=== PATIENT | female | born 2000 | race Caucasian/White ===

== ENCOUNTER → 2021-12-17 | Outpatient (CLI) | payer BC ==
--- NOTE | 2021-12-17 15:10 | Diagnostic Imaging Report ---
PROCEDURE: CT sinuses without contrast TECHNIQUE: Multiple contiguous axial images were obtained through the sinuses without the use of intravenous contrast. Coronal and sagittal reformations were then performed. Auto Exposure Controls were utilized during the CT exam to meet ALARA standards for radiation dose reduction. INDICATION: Nasal congestion. FINDINGS: There is some moderate bilateral maxillary sinus disease. Frontal sinuses are clear. Ethmoid air cells are largely clear as is the sphenoid sinus. Mastoid air cells are clear. There have been bilateral antrectomies. There is deviation of the nasal septum. The globes and intraorbital structures are unremarkable. Nasopharyngeal soft tissues are symmetrical without mass effect. Parotid glands are unremarkable. IMPRESSION: Previous bilateral maxillary antrectomy with some deviation of the nasal septum. Mild to moderate mucosal thickening in the maxillary sinuses. Dictated by: Dictated on workstation # [id number]
== END ==
LOC: RAD 14:15
PROVIDERS: ATTEND Otolaryngology Otolaryngology/Facial Plastic Surgery
DX: J34.2 Deviated nasal septum (principal); J32.0 Chronic maxillary sinusitis; J33.9 Nasal polyp, unspecified; Z98.890 Other specified postprocedural states
CPT/HCPCS: 70486

== ENCOUNTER 2022-03-18 05:42 | Outpatient (CLI) | payer BC ==
[~2022-03-18] VITALS: Ht 170.2 cm; Wt 84.1 kg
[2022-03-19] MEDS ORDERED: RT-ALBUINH INH (10:05)
== END 2022-03-19 10:23 | disposition home or self-care (01) ==
LOC: PREOP 05:42
PROVIDERS: ATTEND Otolaryngology Otolaryngology/Facial Plastic Surgery
DX: Z01.818 Encounter for other preprocedural examination (principal)

== ENCOUNTER 2022-03-21 06:02 | Day surgery (SDC) | payer BC ==
[~2022-03-21] VITALS: Ht 170.2 cm; Wt 84.1 kg
[2022-03-21] VITALS (11 sets, daily range): BP systolic 105–138; BP diastolic 70–95
[~2022-03-21 06:02] MED LIST: RT-ALBUINH INH
[2022-03-21] MEDS ORDERED: MIDAZOLAM 2 MG/2 ML (VERSED) VIAL ONE ×2 (06:38→07:04)
[2022-03-21] MEDS ORDERED: RT-ALBUTEROL SULF 2.5 MG/3 ML PRE-MIX VIAL INH ONE (06:45)
[2022-03-21] MEDS ORDERED: MIDAZOLAM 2 MG/2 ML (VERSED) VIAL IV ONE (06:45)
[2022-03-21] MEDS ORDERED: LACTATED RINGERS 1,000 ML IV PRN (06:45)
[2022-03-21] MEDS ORDERED: PHENYLEPHRINE 0.5% NASAL SPR (NEO-SYNEPHRINE) REG ONE (06:50)
[2022-03-21 06:57] LABS: BASOPHILS # (AUTO) 0.1 10^3/uL (0.0-0.1); BASOPHILS % (AUTO) 1 % (0-10); EOSINOPHILS # (AUTO) 0.7 10^3/uL (0.0-0.3); EOSINOPHILS % (AUTO) 8 % (0-10); HEMATOCRIT 41 % (35-52); HEMOGLOBIN 13.8 g/dL (11.5-16.0); LYMPHOCYTES # (AUTO) 2.7 10^3/uL (1.0-4.0); LYMPHOCYTES % (AUTO) 33 % (12-44); MEAN CORPUSCULAR HEMOGLOBIN 29 pg (25-34); MEAN CORPUSCULAR HGB CONC 34 g/dL (32-36); MEAN CORPUSCULAR VOLUME 87 fL (80-99); MEAN PLATELET VOLUME 9.8 fL (9.0-12.2); MONOCYTES # (AUTO) 0.8 10^3/uL (0.0-1.0); MONOCYTES % (AUTO) 9 % (0-12); NEUTROPHILS % (AUTO) 48 % (42-75); PLATELET COUNT 432 10^3/uL (130-400); WHITE BLOOD COUNT 8.3 10^3/uL (4.3-11.0)
[2022-03-21] MEDS ORDERED: LIDOCAINE/EPI 2% 1:100,00 (XYLOCAINE) 20 ML VIAL ONE (06:59)
[2022-03-21] MEDS ORDERED: LIDOCAINE PF 2% 5 ML (XYLOCAINE) VIAL ONE (07:02)
[2022-03-21] MEDS ORDERED: ONDANSETRON 4 MG/2 ML (SDV) Z0FRAN ONE (07:02)
[2022-03-21] MEDS ORDERED: proPOfol 200 MG/20 ML (DIPRIVAN) VIAL IV ONE ×2 (07:02→07:40)
[2022-03-21] MEDS ORDERED: fentaNYL INJ 100 MCG/2 ML AMP ONE (07:02)
[2022-03-21] MEDS ORDERED: SEVOFLURANE (ULTANE) 15 ML INHAL SOLN ONE ×2 (07:02→07:40)
--- NOTE | 2022-03-21 07:05 | Progress Note-Pre Operative ---
Pre-Operative Progress Note H&P Reviewed The H&P was reviewed, patient examined and no changes noted. Date Seen by Provider: March 21, 2022 Time Seen by Provider: 07:00 Date H&P Reviewed: March 21, 2022 Time H&P Reviewed: 07:00 Pre-Operative Diagnosis: T/A Hyper with Uao, bILAT hYPRE OF iNF tURBS SHAUN LATIF MD March 21, 2022 07:05
--- NOTE | 2022-03-21 07:08 | Progress Note-Post Operative ---
Post-Operative Progess Note Surgeon (s)/Cardiac Rehabilitation Specialist (s) Surgeon SHAUN LATIF MD Cardiac Rehabilitation Specialist n/a Pre-Operative Diagnosis T/A Hyper with Uao, bILAT hYPRE OF iNF tURBS Post-Operative Diagnosis same Post-Op Procedure Note Date of Procedure: March 21, 2022 Name of Procedure Performed: T/A, Bilat Red of Inf Turbs Description & Findings Description and Findings: n/a Anesthesia Type get Estimated Blood Loss minimal Packing none. Specimen(s) collected/removed tonsils SHAUN LATIF MD March 21, 2022 07:08
[2022-03-21] MEDS ORDERED: HYDROcodone/APAP 7.5MG-325 MG/15 ML (LORTAB) UDC PO PRN (07:15)
[2022-03-21] MEDS ORDERED: NS IV 1000 ML 1,000 ML IV SCH (07:15)
[2022-03-21] MEDS ORDERED: APAP 325 MG/10.15 ML LIQ (TYLENOL) UDC PO PRN (07:15)
--- NOTE | 2022-03-21 07:58 | Anesthesia-General Post-Op ---
General Patient Condition Mental Status/LOC: Same as Preop Cardiovascular: Satisfactory Nausea/Vomiting: Absent Respiratory: Satisfactory Pain: Controlled Complications: Absent Post Op Complications Complications None Follow Up Care/Instructions Patient Instructions None needed. Anesthesia/Patient Condition Patient Condition Patient is doing well, no complaints, stable vital signs, no apparent adverse anesthesia problems. No complications reported per nursing. ARMINDA MORRISON CRNA March 21, 2022 07:58
[2022-03-21] MEDS ORDERED: MEPERIDINE (DEMEROL) INJ 50 MG/ML IVP ONE (08:00)
[2022-03-21] MEDS ORDERED: fentaNYL INJ 100 MCG/2 ML AMP IVP ONE (08:00)
[2022-03-21] MEDS ORDERED: morphine INJ 10 MG/ML 1ML (SYR OR VIAL) IVP ONE (08:00)
[2022-03-21] MEDS ORDERED: ONDANSETRON 4 MG/2 ML (SDV) Z0FRAN IVP PRN (08:00)
[2022-03-21] MEDS ORDERED: AMOX250S5 PO (08:27)
[2022-03-21] MEDS ORDERED: HYDR15SO8 PO (08:27)
[2022-03-21] MEDS ORDERED: TETRACAINESUCKERS MT (08:27)
[2022-03-21] MEDS ORDERED: DEXAINTSOL PO (08:27)
== END 2022-03-21 10:55 | disposition home or self-care (01) ==
LOC: SDC 06:02
PROVIDERS: ATTEND Otolaryngology Otolaryngology/Facial Plastic Surgery
DX: J35.3 Hypertrophy of tonsils with hypertrophy of adenoids (principal); J03.91 Acute recurrent tonsillitis, unspecified; J35.01 Chronic tonsillitis; J98.8 Other specified respiratory disorders; J34.3 Hypertrophy of nasal turbinates; R09.81 Nasal congestion
CPT/HCPCS: 36415; 84703; 85025; 87081; 94640

== ENCOUNTER 2022-03-22 | Emergency (ER) | payer BC ==
[~2022-03-22] VITALS: Ht 170 cm; Wt 84.1 kg
[~2022-03-22] MED LIST changes: +AMOX250S5 PO; +DEXAINTSOL PO; +HYDR15SO8 PO; +TETRACAINESUCKERS MT
[2022-03-22 00:08] VITALS: BP 137/92
--- NOTE | 2022-03-22 00:26 | ED General ---
General Stated Complaint: POST OP TONSILECTOMY SWELLING Source of Information: Patient, Family (mom) Exam Limitations: No Limitations History of Present Illness Date Seen by Provider: March 22, 2022 Time Seen by Provider: 00:08 Initial Comments Patient presents to the ER by private conveyance with her mother and chief complaint that she is having some swelling in her lips and tongue since the time she took the steroid @ 1030 AM. This morning at 0730 Dr. Rutherford, ENT did turbinate and tonsil surgery. He also put her on amoxicillin. She has no known drug allergies. She says she feels like her tongue is swollen as well as her lips and it is hard to swallow anything more than liquids. She says she cannot breathe out of her nose. She spoke to the surgeon over the phone but he could not tell based on her story over the phone if she was having allergic reaction or the expected amount of swelling after a significant facial surgery. The patient's never had anaphylaxis in the past. No significant family history. She has a history of asthma but no shortness of air or wheezing or cough. Allergies and Home Medications Allergies Coded Allergies: No Known Drug Allergies (Unverified , 03/21/22) Patient Home Medication List Home Medication List Reviewed: Yes Albuterol Sulfate (Ventolin Hfa) 1 Puff Puff, 2 PUFF INH UD, (Reported) Entered as Reported by: ADDIS EDEN on 03/19/22 100 Amoxicillin (Amoxicillin) 250 Mg/5 Ml Susp, 1 TSP PO BID Prescribed by: OSBALDO VELEZ on 03/21/22826 Dexamethasone (Decadron Intensol Oral Solution (Repackaging)) 1 Mg/Ml Diamond, 2 TSP PO DAILY PRN for PAIN Prescribed by: OSBALDO VELEZ on 03/21/22826 Hydrocodone/Acetaminophen (Hydrocodon-Acetamin 7.5-325/15 ML) 7.5 Mg-325 Mg/15 Ml (15 Ml) Solution, 2-3 TSP PO Q4H Prescribed by: OSBALDO VELEZ on 03/21/22826 Tetracaine (Tetracaine Suckers) Sucker Ea, 1 EA MT UD PRN for PAIN Prescribed by: OSBALDO VELEZ on 03/21/22826 Review of Systems Review of Systems Constitutional: No chills, No fever EENTM: No ear discharge, No ear pain Respiratory: No cough, No short of breath Cardiovascular: No chest pain, No edema Gastrointestinal: abdominal pain; No nausea Genitourinary: No discharge, No dysuria Musculoskeletal: No back pain, No joint pain Skin: No pruritus, No rash All Other Systems Reviewed Negative Unless Noted: Yes Past Tibqioc-Xuiofr-Kpusvw Hx Patient Social History Tobacco Use?: No Use of E-Cig and/or Vaping dev: No Substance use?: No Immunizations Up To Date First/Initial COVID19 Vaccinat: 09/2021 Second COVID19 Vaccination Mak: 10/2021 Seasonal Allergies Seasonal Allergies: Yes Past Medical History Surgeries: Yes (NOSE SURGERY 3 TIMES (POLYPS X2 THEN DEVIATED SEPTUM)) Respiratory: Yes (EXERCISE INDUCED ASTHMA - TAKING ALL THE TIME RIGHT NOW) Asthma Currently Using CPAP: No Currently Using BIPAP: No Cardiac: No Neurological: No Genitourinary: No Gastrointestinal: No Musculoskeletal: No Endocrine: No HEENT: Yes (STREEP, ENLARGED TONSILS) Cancer: No Psychosocial: No Integumentary: No Blood Disorders: No Physical Exam Vital Signs Capillary Refill : Height, Weight, BMI Height: '" Weight: lbs. oz. kg; 29.03 BMI Method: General Appearance: No Apparent Distress, WD/WN, Obese Eyes: Bilateral Eye Normal Inspection, Bilateral Eye PERRL, Bilateral Eye EOMI HEENT: PERRL/EOMI, TMs Normal, Other (Bilateral nasal cavities are packed with gauze and taped shut. She has mild amount of swelling of her lips but no prominence of the tongue. She has clear speech. Postsurgical changes seen in the retropharynx.) Neck: Full Range of Motion, Normal Inspection, Non Tender, Supple Respiratory: Lungs Clear, Normal Breath Sounds, No Accessory Muscle Use, No Respiratory Distress Cardiovascular: Regular Rate, Rhythm, No Edema, Normal Peripheral Pulses Neurologic/Psychiatric: Alert, Oriented x3; No Normal Mood/Affect (Anxious affect) Skin: Normal Color, Warm/Dry Progress/Results/Core Measures Suspected Sepsis SIRS Temperature: Pulse: Respiratory Rate: Blood Pressure / Mean: Results/Orders My Orders Orders - SPARKLE CORLEY Ed Iv/Invasive Line Start (03/22/22 00:20) Diphenhydramine Injection (Benadryl Inje (03/22/22 00:30) Medications Given in ED Current Medications Medications Dose Ordered Sig/Raf Route Start Time Stop Time Status Last Admin Dose Admin Diphenhydramine HCl 25 mg ONCE ONCE IVP 03/22/22 00:30 03/22/22 00:31 DC 03/22/22 00:32 25 MG Vital Signs/I&O Capillary Refill : Progress Note #1: Time: 00:28 Progress Note This is not consistent with a anaphylactic or angioedema presentation. The swelling is more likely explained by her recent surgery. The fact that she started experiencing swelling in the first few hours after the surgery and not associated with the use of the antibiotics makes this much less likely. We did discuss doing some Benadryl for both anxiolysis as well as to see if it would help with the swelling. I suspect that it will not help as the swelling is edema from the trauma of surgery. She is able to tolerate fluids and has normal vital signs. Will observe her for about an hour and then make another assessment. We did place an IV just in case. Progress Note #2: Time: 01:20 Progress Note On reexamination the patient states she feels better. Her lips seem to be about the same as well as her tongue. She does not have protrusion of the tongue, prominence of swelling of the soft tissues of the palate or retropharynx beyond what would be expected for postsurgical changes. She has no vocal changes. No stridor or shortness of breath, wheezing etc. She was softly sleeping when we went in the room and easy to arouse. We have suggested Benadryl would be a good choice if she is having a hard time sleeping. We did offer her something for pain before she left which she declined. Will communicate this to Dr. Rutherford that at this time there does not appear to be any evidence of angioedema or anaphylaxis. Keep her follow-up appointment on the Departure Impression Primary Impression: S/P tonsillectomy Disposition: HOME, SELF-CARE Condition: Stable Departure-Patient Inst. Decision time for Depature: :22 Referrals: NO,LOCAL PHYSICIAN (PCP) Primary Care Physician SHAUN RUTHERFORD MD Patient Instructions: Tonsillectomy (DC) Add. Discharge Instructions: Feel free to call Dr. Rutherford with questions. Keep your follow-up appointment on the . Continue to push fluids to drink. If it anytime you feel that your tongue is becoming more prominent, you are having a hard time with speech, breathing or drinking then I encourage you to promptly return to the nearest ER for reevaluation. If you need help with sleep you can take a tablet or 2 of Benadryl every 6 hours as needed. Copy Copies To 1: SHAUN RUTHERFORD MD, TITUS J March 22, 2022 00:26
[2022-03-22] MEDS ORDERED: diphenhydrAMINE 50 MG/ML INJ (BENADRYL) IVP ONE (00:30)
== END 2022-03-22 01:32 | disposition home or self-care (01) ==
LOC: EDUNIT# → ER 00:05
DX: J95.89 Other postprocedural complications and disorders of respiratory system, not elsewhere classified (principal); Z90.89 Acquired absence of other organs
CPT/HCPCS: 99283